=== PATIENT | male | born 1980 | race Caucasian/White ===

== ENCOUNTER 2018-01-04 19:40 | Emergency (ER) | payer BC ==
[~2018-01-04] VITALS: Ht 167.6 cm; Wt 91.3 kg
[2018-01-04 22:42] VITALS: BP 129/59
== END 2018-01-04 22:42 | disposition home or self-care (01) ==
LOC: ED 19:40
DX: S20.212A Contusion of left front wall of thorax, initial encounter (principal); J45.909 Unspecified asthma, uncomplicated; X58.XXXA Exposure to other specified factors, initial encounter; Y93.89 Activity, other specified; Y92.89 Other specified places as the place of occurrence of the external cause; Y99.8 Other external cause status

== ENCOUNTER 2018-01-05 10:37 | Emergency (ER) | payer BC ==
[~2018-01-05] VITALS: Ht 167.6 cm; Wt 92.1 kg
[2018-01-05 11:12] VITALS: Ht 167.6 cm; Wt 92.1 kg
[2018-01-05 12:12] VITALS: BP 113/64
== END 2018-01-05 12:12 | disposition home or self-care (01) ==
LOC: ED 10:37
DX: Z02.79 Encounter for issue of other medical certificate (principal); J45.909 Unspecified asthma, uncomplicated

== ENCOUNTER 2018-01-20 18:15 | Emergency (ER) | payer BC ==
[2018-01-20 18:42] VITALS: BP 122/41; Ht 167.6 cm
== END 2018-01-20 19:02 | disposition home or self-care (01) ==
LOC: ED 18:15
DX: S29.8XXD Other specified injuries of thorax, subsequent encounter (principal); J45.909 Unspecified asthma, uncomplicated; X58.XXXD Exposure to other specified factors, subsequent encounter